=== PATIENT | female | born 1990 | race Caucasian/White ===

== ENCOUNTER 2018-08-25 17:24 | Inpatient (IN) | payer BC ==
[2018-08-25 17:27] VITALS: BMI 21.7
[2018-08-25] MEDS ORDERED: Sodium Chloride 0.9% 1,000 ML IV ONE (17:35)
--- NOTE | 2018-08-25 17:43 | C.PDOC ---
History Of Present Illness 27 year old female with no past medical history presents to the ED for evaluation of nausea, vomiting, and abdominal pain since 10am this morning. Patient describes the abdominal pain as sharp and diffuse, worse over the lower abdomen. Notes last menstrual period was Aug 11, not currently on control. Denies changes in urine, diarrhea, fever, and any other associated symptoms. Time Seen by Provider: 08/25/18 17:31 Chief Complaint (Nursing): Abdominal Pain History Per: Patient History/Exam Limitations: no limitations Onset/Duration Of Symptoms: Hrs Current Symptoms Are (Timing): Still Present Past Medical History Reviewed: Historical Data, Nursing Documentation, Vital Signs Vital Signs: Last Vital Signs Temp 98.9 F 08/25/18 17:27 Pulse 68 08/25/18 17:27 Resp 20 08/25/18 17:27 BP 109/78 08/25/18 17:27 Pulse Ox 100 08/25/18 17:27 Family History: States: Unknown Family Hx - Social History Hx Alcohol Use: Yes Hx Substance Use: No - Immunization History Hx Tetanus Toxoid Vaccination: No Hx Influenza Vaccination: No Hx Pneumococcal Vaccination: No Review Of Systems Constitutional: Negative for: Fever, Chills Gastrointestinal: Positive for: Nausea, Vomiting, Abdominal Pain Genitourinary: Negative for: Other (urine changes.) Physical Exam - Physical Exam Appears: Non-toxic, Other (uncomfortable. spitting saliva into a bag.) Skin: Normal Color, Warm, Dry Head: Atraumatic, Normacephalic Eye(s): bilateral: Normal Inspection Oral Mucosa: Moist Neck: Normal ROM, Supple Chest: Symmetrical, No Deformity Cardiovascular: Rhythm Regular, No Murmur Respiratory: Normal Breath Sounds, No Rales, No Rhonchi, No Wheezing Gastrointestinal/Abdominal: Normal Exam, Bowel Sounds (quiet.), Tenderness (over the lower quadrant. ), Distention (mild diffuse distended abdomen.) Neurological/Psych: Oriented x3, Normal Speech ED Course And Treatment - Laboratory Results Result Diagrams: 08/25/18 17:45 08/25/18 17:45 Lab Interpretation: Abnormal (WBC 20.9 with marked left shift) O2 Sat by Pulse Oximetry: 100 (RA) Pulse Ox Interpretation: Normal - CT Scan/US CT abd/pelvis Other Rad Studies (CT/US): Read By Radiologist, Radiology Report Reviewed CT/US Interpretation: EXAM: CT Abdomen and Pelvis with IV contrast. CLINICAL HISTORY: MID ABD PAIN. VOMITING. TECHNIQUE: Axial computed tomography images of the abdomen and pelvis with intravenous contrast. CONTRAST: With intravenous contrast. COMPARISON: None provided. FINDINGS: LUNG BASES: The lung bases appear clear. No pleural effusions are seen. LIVER: Unremarkable. GALLBLADDER AND BILE DUCTS: The gallbladder appears within normal limits. No radioopaque gallstones are seen. No biliary ductal dilatation is evident. PANCREAS: Unremarkable. SPLEEN: Unremarkable. ADRENAL GLANDS: Unremarkable. KIDNEYS, URETERS, AND BLADDER: The kidneys appear within normal limits. There is no hydronephrosis or hydroureter. No urinary calculi are seen. STOMACH AND BOWEL: Unremarkable appearance of the stomach and bowel. No evidence of bowel obstruction. No evidence suggesting enteritis or colitis. APPENDIX: Findings consistent with acute appendicitis. PERITONEUM: No free fluid. No free air. LYMPH NODES: No lymphadenopathy is evident. REPRODUCTIVE: Unremarkable as vis ualized. VASCULATURE: No evidence of abdominal aortic aneurysm. BONES: No aggressive appearing osseous lesion. No acute osseous pathology evident. IMPRESSION: Findings consistent with acute appendicitis. No abscess or rupture. . Electronically signed on Aug 25, 2018 9:52:25 PM EDT by: Sal Hernandez M.D., TERRANCE Certified By [facility] & [facility]. Fellowship Trained MRI and CT Specialist Reevaluation Time: 22:00 Reassessment Condition: Improved - Physician Consult Information Time Consulting Physician Contacted: 22:01 Physician Contacted: Laurent Macias Medical Decision Making Medical Decision Making: Plan: -Obstructive Series X-ray -CT ABD/Pelvis PO & IV Contrast -Blood sent. -Urine HCG -Urinalysis -Zofran Disposition - Disposition Disposition: HOSPITALIZED Disposition Time: 22:01 Condition: STABLE - POA Present On Arrival: None - Clinical Impression Clinical Impression: Acute appendicitis - Scribe Statement The provider has reviewed the documentation as recorded by the Scribe (Amie Camacho) Provider Attestation: All medical record entries made by the Scribe were at my direction and personally dictated by me. I have reviewed the chart and agree that the record accurately reflects my personal performance of the history, physical exam, medical decision making, and the department course for this patient. I have also personally directed, reviewed, and agree with the discharge instructions and disposition.
[2018-08-25 17:50] LABS: BASO # 0.1 K/uL (0.0-0.2); BASO % 0.4 % (0.0-2.0); HEMOGLOBIN 14.3 g/dL (11.0-16.0); MEAN CELL VOLUME 84.6 fL (81.0-99.0); MEAN CORPUSCULAR HEMOGLOBIN 28.3 pg (27.0-31.0); MEAN CORPUSCULAR HGB CONC 33.4 g/dL (33.0-37.0); MEAN PLATELET VOLUME 9.9 fL (7.2-11.7); MONO # 0.3 K/uL (0.0-0.8); MONO % 1.5 % (0.0-10.0); NEUT # 19.4 K/uL (1.8-7.0); NEUT % 93.1 % (50.0-75.0); PLATELET COUNT 269 K/uL (130-400); RBC 5.07 Mil/uL (3.80-5.20); RED CELL DISTRIBUTION WIDTH 13.2 % (11.5-14.5); WHITE BLOOD COUNT 20.9 K/uL (4.8-10.8)
[2018-08-25] MEDS ORDERED: Sodium Chloride 0.9% 1,000 ML ONE (17:54)
[2018-08-25 18:10] LABS: HCG,QUALITATIVE URINE NEGATIVE (NEGATIVE)
[2018-08-25 18:18] LABS: SQUAMOUS EPITHIAL 5 /hpf (0-5); URINE BACTERIA RARE (<OCC); URINE BILIRUBIN NEGATIVE (NEGATIVE); URINE BLOOD NEGATIVE (NEGATIVE); URINE CLARITY Clear (Clear); URINE COLOR Yellow (YELLOW); URINE GLUCOSE (UA) NORMAL (Normal); URINE LEUKOCYTE ESTERASE NEG Leu/uL (Negative); URINE PROTEIN 2+ mg/dL (NEGATIVE); URINE UROBILINOGEN NORMAL mg/dL (0.2-1.0)
[2018-08-25 18:20] LABS: ALB/GLOB RATIO 1.2 (1.0-2.1); ALBUMIN 4.9 g/dL (3.5-5.0); ALT/SGPT 19 U/L (9-52); AST/SGOT 30 U/L (14-36); BLOOD UREA NITROGEN 18 mg/dL (7-17); CALCIUM 9.6 mg/dl (8.6-10.4); GFR NON-AFRICAN AMERICAN > 60; LIPASE 36 U/L (23-300)
[2018-08-25 18:33] LABS: BANDS 1 % (0-2); BASOPHIL 1 % (0-2); LYMPHOCYTE 4 % (20-40); MONOCYTE 1 % (0-10); MYELOCYTE 1 % (0-0); NEUTROPHIL 92 % (50-75); PLATELET ESTIMATE NORMAL (NORMAL); TOTAL CELLS COUNTED 100
[2018-08-25] MEDS ORDERED: Iohexol 240 (50 ml) PO ONE (18:40)
--- NOTE | 2018-08-25 18:51 | RAD ---
Date of service: 08/25/2018 PROCEDURE: Radiographs of the chest and abdomen (obstructive series) HISTORY: abd pain COMPARISON: No prior. TECHNIQUE: AP radiograph of the chest, with upright and supine radiographs of the abdomen. FINDINGS: CHEST: Lungs: Clear. Cardiovascular: Normal size heart. No pulmonary vascular congestion.No aortic atherosclerotic calcification. Pleura: No pleural fluid. No pneumothorax. Other findings: None. ABDOMEN AND PELVIS: Bowel: Unremarkable bowel gas pattern. No evidence of mechanical obstruction. Free air: None. Bones: Unremarkable. Other findings: None. IMPRESSION: Unremarkable radiographs of chest and abdomen. No evidence of mechanical bowel obstruction.
[2018-08-25] MEDS ORDERED: Iohexol 240 (50 ml) ONE (18:56)
[2018-08-25] MEDS ORDERED: Iodixanol 320 MG/ML 100 ML BOTTLE IV ONE (19:55)
[2018-08-25] MEDS ORDERED: Piperacillin/Tazobact 3.375 gm 100 ML IV STA (21:29)
[2018-08-25] MEDS ORDERED: Piperacillin/Tazobact 3.375 gm 100 ML IVPB ONE (21:37)
--- NOTE | 2018-08-25 22:56 | CP.PCM.HP ---
History of Present Illness - History of Present Illness History of Present Illness: Surgery 27 F w no sig PMG came w Low abd pain nausea vomiting started this am. Last time she ate was 1pm today. NOn bloody non bilious. Denies fever, diarrhea, CP, recent infection, sickness, illness, sick contact. Pt never had these sx in the past. CT shows appendicitis . WBC is 21. Pt consenting for surgery. Understood all risks and procedure. Her LMP is mid july. PT is not . PMH none PSH none SS lives with Present on Admission - Present on Admission Any Indicators Present on Admission: Yes Review of Systems - Review of Systems Review of Systems: See HPI Past Patient History - Past Social History Smoking Status: Light Smoker < 10 Cigarettes Daily - PSYCHIATRIC Hx Substance Use: No - SURGICAL HISTORY Hx Surgeries: No - ANESTHESIA Hx Anesthesia: No Meds Allergies/Adverse Reactions: Allergies Allergy/AdvReac Type Severity Reaction Status Date / Time No Known Allergies Allergy Verified 08/25/18 17:26 Physical Exam - Constitutional Appears: No Acute Distress - Head Exam Head Exam: ATRAUMATIC, NORMAL INSPECTION, NORMOCEPHALIC - Eye Exam Eye Exam: EOMI, Normal appearance, PERRL Pupil Exam: NORMAL ACCOMODATION, PERRL - ENT Exam ENT Exam: Mucous Membranes Moist - Neck Exam Neck exam: Positive for: Normal Inspection - Respiratory Exam Respiratory Exam: NORMAL BREATHING PATTERN - Cardiovascular Exam Cardiovascular Exam: REGULAR RHYTHM - GI/Abdominal Exam GI & Abdominal Exam: Distended, Soft, Tenderness. absent: Firm, Guarding, Hernia Additional comments: RLQ abd TTP - Exam Exam: NORMAL INSPECTION - Extremities Exam Extremities exam: Positive for: full ROM, normal inspection - Back Exam Back exam: NORMAL INSPECTION - Neurological Exam Neurological exam: Alert, CN II-XII Intact, Normal Gait, Oriented x3, Reflexes Normal - Psychiatric Exam Psychiatric exam: Normal Affect, Normal Mood - Skin Skin Exam: Dry, Intact, Normal Color, Warm Results - Vital Signs Recent Vital Signs: Last Vital Signs Temp 98.9 F 08/25/18 17:27 Pulse 68 08/25/18 17:27 Resp 20 08/25/18 17:27 BP 109/78 08/25/18 17:27 Pulse Ox 100 08/25/18 22:46 - Labs Result Diagrams: 08/25/18 17:45 10/31/18 17:45 Labs: Laboratory Results - last 24 hr 08/25/18 08/25/18 08/25/18 17:45 17:45 18:02 WBC 20.9 H RBC 5.07 Hgb 14.3 Hct 42.9 MCV 84.6 MCH 28.3 MCHC 33.4 RDW 13.2 Plt Count 269 MPV 9.9 Neut % (Auto) 93.1 H Lymph % (Auto) 5.0 L [place] % (Auto) 1.5 Eos % (Auto) 0.0 Baso % (Auto) 0.4 Neut # (Auto) 19.4 H Lymph # (Auto) 1.0 Rock # (Auto) 0.3 Eos # (Auto) 0.0 Baso # (Auto) 0.1 Neutrophils % (Manual) 92 H Band Neutrophils % 1 Lymphocytes % (Manual) 4 L Monocytes % (Manual) 1 Basophils % (Manual) 1 Myelocytes % 1 H Platelet Estimate Normal Sodium 138 Potassium 4.4 Chloride 100 Carbon Dioxide 23 Anion Gap 20 BUN 18 H Creatinine 0.7 Est GFR ( Amer) > 60 Est GFR (Non-Af Amer) > 60 Random Glucose 135 H Calcium 9.6 Total Bilirubin 0.7 AST 30 ALT 19 Alkaline Phosphatase 67 Total Protein 9.0 H Albumin 4.9 Globulin 4.1 H Albumin/Globulin Ratio 1.2 Lipase 36 Urine Color Yellow Urine Clarity Clear Urine pH 9.0 Ur Specific [place] 1.030 Urine Protein 2+ H Urine Glucose (UA) Normal Urine Ketones 2+ H Urine Blood Negative Urine Nitrate Negative Urine Bilirubin Negative Urine Urobilinogen Normal Ur Leukocyte Esterase Neg Urine WBC (Auto) < 1 Urine RBC (Auto) 3 Ur Squamous Epith Cells 5 Urine Bacteria Rare Urine HCG, Qual Negative Assessment & Plan - Assessment and Plan (Free Text) Assessment: Appendicitis -NPO -IVF -ABX -OR Thurs DW Dr. Macias
[2018-08-26] MEDS: Sodium Chloride 0.9% 1,000 ML IV SCH ×4 (00:09→21:38)
[2018-08-26] MEDS: Piperacillin/Tazobact 3.375 GM in Sodium Chloride 100 ML IVPB SCH ×5 (01:28→22:00)
[2018-08-26 07:25] LABS: BASO # 0.1 K/uL (0.0-0.2); BASO % 0.5 % (0.0-2.0); EOS # 0.1 K/uL (0.0-0.7); EOS % 0.6 % (0.0-4.0); HEMOGLOBIN 12.4 g/dL (11.0-16.0); LYMPH # 2.9 K/uL (1.0-4.3); LYMPH % 20.9 % (20.0-40.0); MEAN CORPUSCULAR HEMOGLOBIN 28.4 pg (27.0-31.0); MEAN CORPUSCULAR HGB CONC 33.4 g/dL (33.0-37.0); MEAN PLATELET VOLUME 9.9 fL (7.2-11.7); MONO % 7.4 % (0.0-10.0); NEUT # 9.9 K/uL (1.8-7.0); NEUT % 70.6 % (50.0-75.0); RBC 4.37 Mil/uL (3.80-5.20); RED CELL DISTRIBUTION WIDTH 12.9 % (11.5-14.5)
[2018-08-26 07:36] LABS: INR 1.1; PROTHROMBIN TIME 12.4 SECONDS (9.7-12.2)
[2018-08-26 08:06] LABS: ALB/GLOB RATIO 1.2 (1.0-2.1); ALBUMIN 3.3 g/dL (3.5-5.0); ALT/SGPT 23 U/L (9-52); AST/SGOT 13 U/L (14-36); BLOOD UREA NITROGEN 13 mg/dL (7-17); GFR NON-AFRICAN AMERICAN > 60
--- NOTE | 2018-08-26 11:09 | CT ---
PROCEDURE: CT Abdomen and Pelvis with oral and IV contrast. HISTORY: abdominal pain COMPARISON: None available TECHNIQUE: Contiguous axial images of the abdomen and pelvis. Oral and IV contrast was administered. Coronal and Sagittal reformats generated and reviewed. Contrast dose: 150 mL Visipaque 320 Radiation dose: Total exam DLP = 295.93 mGy-cm. This CT exam was performed using one or more of the following dose reduction techniques: Automated exposure control, adjustment of the mA and/or kV according to patient size, and/or use of iterative reconstruction technique. FINDINGS: LOWER THORAX: No visible consolidation, pleural effusion, or pneumothorax. Small hiatal hernia/distal esophageal wall thickening. LIVER: Unremarkable. GALLBLADDER AND BILE DUCTS: Unremarkable. PANCREAS: Unremarkable. SPLEEN: Unremarkable. ADRENALS: Unremarkable. KIDNEYS AND URETERS: The kidneys enhance symmetrically. No hydronephrosis or obstructing renal calculus. BLADDER: The urinary bladder appears unremarkable. REPRODUCTIVE: Uterus is present. APPENDIX: Thickened appearance of the appendix measuring approximately 1.1 cm in diameter the pulmonary some similar acute appendicitis. Adjacent sub cm pericecal lymph nodes. BOWEL: The stomach is nondistended. The bowel loops appear within normal limits of caliber without evidence of intestinal obstruction. PERITONEUM: No significant free fluid. No definite free air. LYMPH NODES: No bulky lymphadenopathy identified. VASCULATURE: No aortic aneurysm. BONES: No acute osseous abnormality is detected. OTHER FINDINGS: None. IMPRESSION: Thickened appearance of the appendix measuring approximately 1.1 cm in diameter the pulmonary some similar acute appendicitis. Adjacent sub cm pericecal lymph nodes. Preliminary impression was provided by [employer] Findings/results discussed by Dr. Mejia with Dr. Lundberg on 08/25/18 at 958pm.
[2018-08-26] MEDS ORDERED: Midazolam 2 MG/2 ML VIAL ONE (14:09)
[2018-08-26] MEDS ORDERED: Propofol 10 mg/ml Inj (20 ML) ONE (14:09)
[2018-08-26] MEDS ORDERED: Bupivacaine-Epi 0.5%-1:200,000 PF Inj ONE (14:18)
[2018-08-26] MEDS ORDERED: Neostigmine Methylsulfate 3mg/3ml Syringe IV ONE (15:03)
--- NOTE | 2018-08-26 15:18 | PCM.SURG1 ---
Surgeon's Initial Post Op Note - Surgeon's Notes Surgeon: Dr. Macias Armament Mechanic: Dr. Cohen PGY-3 Type of Anesthesia: General Endo Pre-Operative Diagnosis: Acute appendicitis Operative Findings: See operative report Post-Operative Diagnosis: Same Operation Performed: Laparoscopic Appendectomy Specimen/Specimens Removed: Appendix Estimated Blood Loss: EBL {In ML}: 10 Blood Products Given: N/A Drains Used: No Drains Post-Op Condition: Good Date of Surgery/Procedure: 08/26/18 Time of Surgery/Procedure: 15:18
[2018-08-26] MEDS ORDERED: HYDROmorphone 0.5 mg/0.5 ml ISec IVP PRN (15:22)
[2018-08-26] MEDS: Oxycodone/Acetaminophen 5/325 mg Tab PO PRN ×2 (17:11→22:03)
[2018-08-26] MEDS: Lactated Ringer's 1,000 ML IV SCH (17:17)
[2018-08-27 00:17] VITALS: RESP 20
[2018-08-27] MEDS: Lactated Ringer's 1,000 ML IV SCH ×2 (01:30→04:36)
[2018-08-27] MEDS: Oxycodone/Acetaminophen 5/325 mg Tab PO PRN ×2 (04:35→10:54)
[2018-08-27] MEDS: Piperacillin/Tazobact 3.375 GM in Sodium Chloride 100 ML IVPB SCH (04:35)
[2018-08-27] MEDS: Sodium Chloride 0.9% 1,000 ML IV SCH (04:48)
[2018-08-27 07:52] LABS: MEAN CELL VOLUME 85.3 fL (81.0-99.0); MEAN CORPUSCULAR HEMOGLOBIN 28.6 pg (27.0-31.0); MEAN CORPUSCULAR HGB CONC 33.5 g/dL (33.0-37.0); MEAN PLATELET VOLUME 9.8 fL (7.2-11.7); RBC 3.85 Mil/uL (3.80-5.20); RED CELL DISTRIBUTION WIDTH 13.1 % (11.5-14.5); WHITE BLOOD COUNT 11.6 K/uL (4.8-10.8)
[2018-08-27 08:18] VITALS: BP 107/66; PULSE 74; TEMP 98.8; O2SAT 95
--- NOTE | 2018-09-01 05:06 | OP ---
PROCEDURE DATE: 08/26/2018 PREOPERATIVE DIAGNOSIS: Acute appendicitis. POSTOPERATIVE DIAGNOSIS: Acute appendicitis. PROCEDURE PERFORMED: Laparoscopic appendectomy. FINDINGS: The appendix was markedly edematous, which was slightly retrocecal. There was no gross perforation noted. No fluid in the peritoneal cavity. DESCRIPTION OF PROCEDURE: Under general anesthesia, the patient was prepared and draped in the usual sterile fashion. CO2 was insufflated to about 15 mmHg pressure. An 11-mm trocar was inserted in the umbilicus, a 5-mm trocar in the suprapubic area and a 5-mm trocar in the left lower quadrant. The patient was placed in a Trendelenburg position and was turned over towards the left side. The appendix was identified. It was dissected free from all the surrounding adhesions. The mesoappendix was transected with the aid of the AutoSuture model Endo JUVENAL with white load. Then, the base of the appendix was . The appendix initially was placed in an Endo Catch and was extracted through the umbilical port. CO2 was allowed to escape from the peritoneal cavity. The trocars were removed. The wound was closed in a routine fashion. Estimated blood loss about 10 mL. No complications. Laurent Macisa MD
== END 2018-08-27 12:10 | disposition home or self-care (01) | DRG 343 ==
LOC: C.ER 17:24 → C.5S 22:47
PROVIDERS: ADMIT Surgery; ATTEND Surgery
PROC: 0DTJ4ZZ Resection of Appendix, Percutaneous Endoscopic Approach (ICD-10-PCS; principal; 2018-08-26 12:00)
DX: K35.890 Other acute appendicitis without perforation or gangrene (principal)